=== PATIENT | female | born 1990 | race Two or more races ===

== ENCOUNTER 2023-06-08 16:02 | Emergency (ER) | payer BC ==
[~2023-06-08] VITALS: Ht 175.3 cm; Wt 79.4 kg
[2023-06-08 16:31] VITALS: BP 116/84; TEMP 97.9; O2SAT 98
[2023-06-08] MEDS ORDERED: ONDANSETRON HCL/PF 4 MG/2 ML VIAL ONE (17:12)
[2023-06-08] MEDS: IV NS 0.9% 1,000 ML BAG IV ONE (17:50)
[2023-06-08] MEDS: ONDANSETRON HCL/PF 4 MG/2 ML VIAL IVP ONE (17:50)
== END 2023-06-08 17:15 | disposition left against medical advice (07) ==
LOC: ER 16:18
DX: R11.10 Vomiting, unspecified (principal); R19.7 Diarrhea, unspecified; Z53.21 Procedure and treatment not carried out due to patient leaving prior to being seen by health care provider
CPT/HCPCS: J2405; J7030